=== PATIENT | female | born 1975 | race Caucasian/White ===

== ENCOUNTER → 2016-06-06 | Outpatient (CLI) | payer BC, OTHER ==
[2016-06-06 09:19] LABS: ABSOLUTE BASOPHILS # (AUTO) 0.2 10^3/uL (0.0-0.2); ABSOLUTE EOSINOPHILS # (AUTO) 0.4 10^3/uL (0.0-0.6); ABSOLUTE MONOCYTES (AUTO) 0.4 10^3/uL (0.1-1.4); ABSOLUTE NEUT (AUTO) 4.3 10^3/uL (1.7-8.2); BASOPHILS % (AUTO) 2.3 % (0-2); EOSINOPHILS % (AUTO) 5.1 % (0-6); HEMATOCRIT 42.9 % (36.0-47.0); HEMOGLOBIN 14.9 g/dL (12.0-15.5); HGB HCT DIFFERENCE 1.8; LYMPHOCYTES % (AUTO) 27.9 % (13-45); MEAN CORPUSCULAR HEMOGLOBIN 28.9 pg (27.0-33.4); MEAN CORPUSCULAR HGB CONC 34.7 g/dL (32.0-36.0); MEAN CORPUSCULAR VOLUME 83 fl (80-97); MONOCYTES % (AUTO) 6.1 % (3-13); RED BLOOD COUNT 5.15 10^6/uL (3.72-5.28); RED CELL DISTRIBUTION WIDTH 13.4 % (11.5-14.0); SEGMENTED NEUTROPHILS % (AUTO) 58.6 % (42-78); WHITE BLOOD COUNT 7.3 10^3/uL (4.0-10.5)
[2016-06-06 09:45] LABS: ALANINE AMINOTRANSFERASE 20 U/L (9-52); ALBUMIN 4.2 g/dL (3.5-5.0); ALKALINE PHOSPHATASE 56 U/L (38-126); ANION GAP 11 (5-19); ASPARTATE AMINO TRANSFERASE 15 U/L (14-36); BILIRUBIN,DIRECT 0.1 mg/dL (0.0-0.4); BILIRUBIN,TOTAL 0.4 mg/dL (0.2-1.3); BLOOD UREA NITROGEN 17 mg/dL (7-20); CALCIUM 9.6 mg/dL (8.4-10.2); CARBON DIOXIDE 27 mmol/L (22-30); CHLORIDE 106 mmol/L (98-107); CREATININE RESULT 0.73 mg/dL (0.52-1.25); GLUCOSE 106 mg/dL (75-110); POTASSIUM 3.8 mmol/L (3.6-5.0); SODIUM 143.6 mmol/L (137-145); TOTAL PROTEIN 6.8 g/dL (6.3-8.2)
--- NOTE | 2016-06-06 16:28 | EKG REPORT ---
SEVERITY:- NORMAL ECG - SINUS RHYTHM : Confirmed by: Dav Francois MD 06-Jun-2016 16:26:41
== END ==
LOC: OD 08:45
PROVIDERS: ATTEND Surgery
DX: Z01.810 Encounter for preprocedural cardiovascular examination (principal); Z01.811 Encounter for preprocedural respiratory examination; Z01.812 Encounter for preprocedural laboratory examination; Z01.818 Encounter for other preprocedural examination; E66.01 Morbid (severe) obesity due to excess calories; I10 Essential (primary) hypertension
CPT/HCPCS: 36415; 71020; 80053; 84443; 85025; 93005; 93010

== ENCOUNTER 2018-10-31 14:07 | Emergency (ER) | payer BC, OTHER ==
--- NOTE | 2018-10-31 14:38 | ER Document Report ---
ED Medical Screen (RME) - General Chief Complaint: Flank Pain Stated Complaint: RIGHT SIDE PAIN Time Seen by Provider: 10/31/18 14:36 Primary Care Provider: DEMETRI MARKS [Primary Care Provider] - Follow up as needed Mode of Arrival: Ambulatory Information source: Patient Notes: 43-year-old female presented to ED for complaint of right flank pain that sometimes radiates around to the front. Patient states the pain is actually higher than the flank area but is in the posterior rib area. states the pain started on Thursday and is getting worse. No stated nausea or vomiting. No previous history of kidney stones. Did take some Tylenol which showed some relief. I have greeted and performed a rapid initial assessment of this patient. A comprehensive ED assessment and evaluation of the patient, analysis of test results and completion of medical decision making process will be conducted by an additional ED providers. TRAVEL OUTSIDE OF THE [place] IN LAST 30 DAYS: No - Related Data Allergies/Adverse Reactions: No Known Allergies Allergy (Verified 10/31/18 14:19) Past Medical History - Past Medical History Cardiac Medical History: Reports: Hx Hypertension - Immunizations Immunizations up to date: Yes Hx Diphtheria, Pertussis, Tetanus Vaccination: No Physical Exam - Vital signs Vitals: Temp Pulse Resp BP Pulse Ox 98.9 F 69 18 146/102 H 99 10/31/18 14:28 10/31/18 14:28 10/31/18 14:28 10/31/18 14:28 10/31/18 14:28 Course - Vital Signs Vital signs: Temp Pulse Resp BP Pulse Ox 98.9 F 69 18 146/102 H 99 10/31/18 14:28 10/31/18 14:28 10/31/18 14:28 10/31/18 14:28 10/31/18 14:28 Doctor's Discharge - Discharge Referrals: DEMETRI MARKS [Primary Care Provider] - Follow up as needed
[2018-10-31 15:06] LABS: APPEARANCE,URINE CLEAR; BILIRUBIN,URINE NEGATIVE (NEGATIVE); COLOR,URINE YELLOW; GLUCOSE, URINE NEGATIVE (NEGATIVE); KETONES,URINE NEGATIVE (NEGATIVE); LEUKOCYTE ESTERASE,URINE TRACE (NEGATIVE); NITRITE,URINE NEGATIVE (NEGATIVE); PROTEIN,URINE NEGATIVE (NEGATIVE); URINE SPECIFIC GRAVITY 1.012; UROBILINOGEN,URINE NEGATIVE mg/dL (<2.0)
--- NOTE | 2018-10-31 15:24 | RADIOLOGY REPORT (SQ) ---
EXAM DESCRIPTION: CHEST 2 VIEWS COMPLETED DATE/TIME: 10/31/2018 3:10 pm REASON FOR STUDY: right upper back pain COMPARISON: 06/06/2016 EXAM PARAMETERS: NUMBER OF VIEWS: two views TECHNIQUE: Digital Frontal and Lateral radiographic views of the chest acquired. RADIATION DOSE: NA LIMITATIONS: none FINDINGS: LUNGS AND PLEURA: There is a new elongated 1.9 cm nodular opacity of the left upper lobe. No pleural effusion. MEDIASTINUM AND HILAR STRUCTURES: No masses or contour abnormalities. HEART AND VASCULAR STRUCTURES: Heart normal size. No evidence for failure. BONES: No acute findings. HARDWARE: None in the chest. OTHER: No other significant finding. IMPRESSION: 1. No acute abnormality of the lungs. 2. There is a new elongated 1.9 cm nodular opacity of the left upper lobe. Recommend nonemergent CT to further evaluate. TECHNICAL DOCUMENTATION: JOB ID: [id number] [employer]- All Rights Reserved Reading location - IP/workstation name: [email or web address]
[2018-10-31 16:12] LABS: ABSOLUTE BASOPHILS # (AUTO) 0.1 10^3/uL (0.0-0.2); ABSOLUTE EOSINOPHILS # (AUTO) 0.2 10^3/uL (0.0-0.6); ABSOLUTE LYMPHOCYTES (AUTO) 1.4 10^3/uL (0.5-4.7); ABSOLUTE MONOCYTES (AUTO) 0.4 10^3/uL (0.1-1.4); ABSOLUTE NEUT (AUTO) 4.9 10^3/uL (1.7-8.2); BASOPHILS % (AUTO) 1.4 % (0-2); EOSINOPHILS % (AUTO) 2.2 % (0-6); HEMATOCRIT 45.7 % (36.0-47.0); LYMPHOCYTES % (AUTO) 19.9 % (13-45); MEAN CORPUSCULAR HEMOGLOBIN 29.9 pg (27.0-33.4); MEAN CORPUSCULAR VOLUME 85 fl (80-97); MONOCYTES % (AUTO) 5.6 % (3-13); PLATELET COUNT 207 10^3/uL (150-450); RED BLOOD COUNT 5.36 10^6/uL (3.72-5.28); RED CELL DISTRIBUTION WIDTH 12.7 % (11.5-14.0); SEGMENTED NEUTROPHILS % (AUTO) 70.9 % (42-78); TOTAL CELLS COUNTED % (AUTO) 100 %; WHITE BLOOD COUNT 6.9 10^3/uL (4.0-10.5)
[2018-10-31 16:28] LABS: ALKALINE PHOSPHATASE 45 U/L (38-126); ANION GAP 9 (5-19); ASPARTATE AMINO TRANSFERASE 20 U/L (14-36); BILIRUBIN,DIRECT 0.1 mg/dL (0.0-0.4); BILIRUBIN,TOTAL 0.6 mg/dL (0.2-1.3); BLOOD UREA NITROGEN 16 mg/dL (7-20); CALCIUM 9.4 mg/dL (8.4-10.2); CARBON DIOXIDE 26 mmol/L (22-30); CHLORIDE 103 mmol/L (98-107); GLUCOSE 79 mg/dL (75-110); TOTAL PROTEIN 6.7 g/dL (6.3-8.2)
[2018-10-31] MEDS ORDERED: LIDOCAINE 5% (700 MG) TRANSDERMAL ADH..PATCH TP ONE (17:36)
[2018-10-31 18:30] VITALS: BP 148/101
--- NOTE | 2018-10-31 18:31 | ER Document Report ---
HPI - HPI Patient complains to provider of: back pain Time Seen by Provider: 10/31/18 14:36 Pain Level: 3 Context: 43-year-old healthy female presents to the emergency department with chief complaint of right upper thoracic pain that periodically radiates around to her anterior chest. Patient states that the pain is dull and aching with periodic sharp stabbing pains. No trauma or falls, but she does state that on Thursday evening she pulled a very heavy cement flowerpot into her garage. Patient denies any fevers or chills, acute shortness of breath or chest pain, denies any shoulder pain, denies any flank pain, denies urinary symptoms. - REPRODUCTIVE Reproductive: DENIES: : - DERM Skin Color: Normal Past Medical History - General Information source: Patient - Social History Smoking Status: Former Smoker Frequency of alcohol use: Occasional Drug Abuse: None Family History: None Patient has suicidal ideation: No Patient has homicidal ideation: No - Past Medical History Cardiac Medical History: Reports: Hx Hypertension Pulmonary Medical History: Reports: Hx Asthma Past Surgical History: Reports: Hx Abdominal Surgery - gastric bypass sleeve, Hx Cholecystectomy - Immunizations Immunizations up to date: Yes Hx Diphtheria, Pertussis, Tetanus Vaccination: No Vertical Provider Document - CONSTITUTIONAL Notes: PHYSICAL EXAMINATION: Reviewed vital signs and charting by RN GENERAL: Alert, interacts well. No acute distress. HEAD: Normocephalic, atraumatic. EYES: Pupils equal and round. Extraocular movements intact. ENT: Oral mucosa moist, tongue midline. NECK: Full range of motion. Trachea midline. LUNGS: Clear to auscultation bilaterally, no wheezes, rales, or rhonchi. No respiratory distress. HEART: Regular rate and rhythm. No murmur ABDOMEN: soft, non-tender. No distention. Bowel sounds present EXTREMITIES: Moves all 4 extremities spontaneously. No edema, No cyanosis. PSYCH: Normal affect, normal mood. SKIN: Warm, dry, normal turgor. No rashes or lesions noted. - INFECTION CONTROL TRAVEL OUTSIDE OF THE [place] IN LAST 30 DAYS: No Course - Re-evaluation Re-evalutation: 10/31/18 18:32 Chest x-ray did show an incidental 1.9 cm oval well-defined density in the left lung padilla the same density as bone. Patient's pain is in the right thoracic area. Lab work all within normal limits, no evidence of infection, urinalysis negative for urinary tract infection. This is an incidental finding on chest x- ray. I suspect patient's pain is most likely related to a musculoskeletal strain and plan is to give her a Lidoderm patch and have her follow-up with her primary doctor. At this time I have no suspicion for nephrolithiasis, pneumothorax, or any other concerning etiology at this time. She is stable for discharge. - Vital Signs Vital signs: Temp Pulse Resp BP Pulse Ox 98.9 F 69 18 146/92 H 99 10/31/18 14:28 10/31/18 14:28 10/31/18 14:28 10/31/18 14:42 10/31/18 14:28 - Laboratory Result Diagrams: 10/31/18 15:40 10/31/18 15:40 Laboratory results interpreted by me: 10/31/18 10/31/18 14:35 15:40 RBC 5.36 H Hgb 16.0 H Ur Leukocyte Esterase TRACE H Discharge - Discharge Clinical Impression: Right-sided thoracic back pain Qualifiers: Chronicity: acute Qualified Code(s): M54.6 - Pain in thoracic spine Condition: Good Disposition: HOME, SELF-CARE Additional Instructions: You were seen in the emergency department for some right upper back pain. The incidental finding on chest x-ray is probably unrelated to this pain. Again, I apologize for the mixup. This is all very reassuring and your lab work was all normal, urinalysis was normal, and your chest x-ray overall did not show any evidence of airspace disease. Please follow-up with your primary doctor and take the x-ray disc with you so they can uploaded in their system and decide if they want to pursue a chest CT. We have given you a Lidoderm patch here, continue to take Tylenol 1000 mill grams every 6 hours, and you can use Biofreeze or whatever topical agent works best for you. Please return to the emergency department if you have severe worsening pain, you develop acute shortness of breath, you develop acute right arm weakness, or you have any other concerning symptoms. Referrals: DEMETRI MARKS [ACTIVE STAFF] - Follow up as needed
== END 2018-10-31 18:30 | disposition home or self-care (01) ==
LOC: ER 14:07
DX: M54.6 Pain in thoracic spine (principal); M54.9 Dorsalgia, unspecified; Z87.891 Personal history of nicotine dependence; I10 Essential (primary) hypertension; J45.909 Unspecified asthma, uncomplicated
CPT/HCPCS: 36415; 71046; 80053; 81001; 84703; 85025; 87086; 99283